=== PATIENT | female | born 1990 | race Caucasian/White ===

== ENCOUNTER 2024-05-07 14:08 | Emergency (ER) | payer BC ==
[~2024-05-07] VITALS: Ht 165.1 cm; Wt 60.3 kg
[2024-05-07 15:10] VITALS: BP 118/74; TEMP 98.2; O2SAT 95
== END 2024-05-07 15:10 | disposition home or self-care (01) ==
LOC: ER 14:14
DX: S09.8XXA Other specified injuries of head, initial encounter (principal); W01.0XXA Fall on same level from slipping, tripping and stumbling without subsequent striking against object, initial encounter; Y93.89 Activity, other specified; Y92.89 Other specified places as the place of occurrence of the external cause; Y99.8 Other external cause status